=== PATIENT | male | born 1975 | race Caucasian/White ===

== ENCOUNTER → 2017-12-23 | Outpatient (CLI) | payer MEDICAID ==
[~2017-12-23] MED LIST: IOPAMIDOL (ISOVUE 370) 100 ML BTL IV ONE
== END ==
LOC: FIMAGING 12:07
PROVIDERS: ATTEND Physician Assistant
DX: G64 Other disorders of peripheral nervous system (principal); Z86.718 Personal history of other venous thrombosis and embolism
CPT/HCPCS: 82565-PO; Q9967